=== PATIENT | female | born 1950 | race Caucasian/White ===

== ENCOUNTER 2019-04-02 15:31 | Emergency (ER) | payer OTHER, MEDICARE ==
[~2019-04-02] VITALS: Ht 167.6 cm; Wt 81.6 kg
[~2019-04-02 15:31] MED LIST: ALPR0.25 PO; ATEN-167 PO; LOSA50TA3 PO
[2019-04-02 15:35] VITALS: BP_SYST 166
== END 2019-04-02 16:00 | disposition left against medical advice (07) ==
LOC: SED 15:31
DX: R21 Rash and other nonspecific skin eruption (principal); Z53.21 Procedure and treatment not carried out due to patient leaving prior to being seen by health care provider

== ENCOUNTER 2019-04-02 20:04 | Emergency (ER) | payer OTHER, MEDICARE ==
[~2019-04-02] VITALS: Ht 167.6 cm; Wt 81.6 kg
[2019-04-02 20:12] VITALS: BP_SYST 163
[2019-04-02 20:51] VITALS: BP_SYST 150
== END 2019-04-02 20:51 | disposition home or self-care (01) ==
LOC: SED 20:04
DX: S80.862A Insect bite (nonvenomous), left lower leg, initial encounter (principal); S80.861A Insect bite (nonvenomous), right lower leg, initial encounter; S40.862A Insect bite (nonvenomous) of left upper arm, initial encounter; S40.861A Insect bite (nonvenomous) of right upper arm, initial encounter; I10 Essential (primary) hypertension; F41.9 Anxiety disorder, unspecified; Z86.79 Personal history of other diseases of the circulatory system; Z79.899 Other long term (current) drug therapy; Z91.041 Radiographic dye allergy status; W57.XXXA Bitten or stung by nonvenomous insect and other nonvenomous arthropods, initial encounter; Y93.89 Activity, other specified; Y92.89 Other specified places as the place of occurrence of the external cause; Y99.8 Other external cause status
CPT/HCPCS: 99283

== ENCOUNTER 2019-10-27 12:30 | Emergency (ER) | payer OTHER, MEDICARE ==
[~2019-10-27] VITALS: Ht 167.6 cm; Wt 77.1 kg
[2019-10-27 12:52] VITALS: BP_SYST 156
--- NOTE | 2019-10-27 13:00 | NUR ---
Patient to ER bed h1 to gown for evaluation. Side rails up.
--- NOTE | 2019-10-27 13:30 | NUR ---
Pt presents to ED for swelling to upper lip
--- NOTE | 2019-10-27 13:35 | NUR ---
ER at bedside examining patient.
[2019-10-27 13:40] VITALS: BP_SYST 156
--- NOTE | 2019-10-27 13:40 | NUR ---
Patient given written and verbal discharge instructions and verbalizes understanding. ER MD discussed with patient the results and treatment provided. Patient in stable condition. ID arm band removed. Rx of bactroban,keflex given. Patient educated on pain management and to follow up with PMD. Pain Scale 0 Opportunity for questions provided and answered. Medication side effect fact sheet provided.
== END 2019-10-27 13:40 | disposition home or self-care (01) ==
LOC: SED 12:30
DX: L01.00 Impetigo, unspecified (principal); K13.0 Diseases of lips; R00.2 Palpitations; R00.0 Tachycardia, unspecified; I10 Essential (primary) hypertension; F41.9 Anxiety disorder, unspecified; Z88.8 Allergy status to other drugs, medicaments and biological substances
CPT/HCPCS: 99283